=== PATIENT | male | born 1955 | race Caucasian/White ===

== ENCOUNTER 2017-05-31 21:25 | Emergency (ER) | payer OTHER ==
[~2017-05-31] VITALS: Ht 185.4 cm; Wt 145.1 kg
[~2017-05-31 21:25] MED LIST: COLACE100 MG PO; LISINOPRIL40 MG PO; LOSARTAN POTASS25 MG PO; TYLENOL WITH C1 EACH PO; VENLAFAXINE HCL75 MG PO; VERAPAMIL ER120 M1 PO; VERAPAMIL ER120 MG PO
[2017-05-31 22:02] LABS: BASOPHILS # (AUTO) 0.1 (0.0-0.1); BASOPHILS % 0.5 % (0.0-1.0); EOSINOPHILS # (AUTO) 0.5 (0.0-0.4); HEMATOCRIT 38.6 % (38.2-49.6); HEMOGLOBIN 12.3 g/dL (14.0-18.0); LYMPHOCYTES # (AUTO) 3.3 (1.0-3.2); LYMPHOCYTES % 28.6 % (18.0-39.1); MEAN CORPUSCULAR HEMOGLOBIN 24.8 pg (28-32); MEAN CORPUSCULAR HGB CONC 31.9 g/dL (31-35); MONOCYTES # (AUTO) 0.8 (0.2-0.8); MONOCYTES % 7.3 % (4.4-11.3); NEUTROPHILS # (AUTO) 6.7 (2.1-6.9); NEUTROPHILS % 59.1 % (38.7-80.0); PLATELET COUNT 231 x10e3/uL (140-360); RED BLOOD COUNT 4.95 x10e6/uL (4.3-5.7); RED CELL DISTRIBUTION WIDTH 14.3 % (11.7-14.4)
[2017-05-31 22:06] LABS: BILIRUBIN,URINE NEGATIVE (NEGATIVE); CLARITY,URINE CLEAR (CLEAR); COLOR,URINE YELLOW (YELLOW); KETONES,URINE NEGATIVE (NEGATIVE); LEUKOCYTE ESTERASE ,URINE NEGATIVE (NEGATIVE); NITRITE,URINE NEGATIVE (NEGATIVE); PROTEIN,URINE DIPSTICK 2+ (NEGATIVE); URINE UROBILINOGEN 0.2 mg/dL (0.2 - 1)
[2017-05-31 22:13] LABS: INR 1.07; PROTHROMBIN TIME 13.1 seconds (11.9-14.5)
[2017-05-31 22:14] LABS: PARTIAL THROMBOPLASTIN TIME 29.2 seconds (23.8-35.5)
[2017-05-31] MEDS ORDERED: METFORMIN HCL500 MG PO (22:14)
[2017-05-31] MEDS ORDERED: PROSCAR5 MG (22:14)
[2017-05-31] MEDS ORDERED: FLOMAX0.4 MG PO (22:14)
[2017-05-31] MEDS ORDERED: EFFEXOR XR 3737.5 MG (22:14)
[2017-05-31 22:24] LABS: ALBUMIN 3.8 g/dL (3.5-5.0); ALBUMIN/GLOBULIN RATIO 1.1 (0.8-2.0); ANION GAP 13.4 mmol/L (8-16); CALCIUM 9.7 mg/dL (8.4-10.2); CREATININE, SERUM 1.27 mg/dL (0.72-1.25); POTASSIUM 3.4 mmol/L (3.5-5.1)
[2017-05-31 22:25] LABS: BACTERIA,URINE RARE /HPF; EPITHELIAL CELLS,URINE RARE /LPF; RBC,URINE 0-5 /HPF (0-5); WBC,URINE (MAN) 0-5 /HPF (0-5)
[2017-05-31 22:30] LABS: CREATINE KINASE MB 1.5 ng/mL (0-5.0)
--- NOTE | 2017-05-31 23:14 | Diagnostic Imaging Report ---
EXAMINATION: Head CT HISTORY: Headache, hypertension COMPARISON: Head CT 08/01/2016 TECHNIQUE: Multidetector axial images were obtained without contrast from the foramen magnum to the vertex . The images were reconstructed using brain and bone algorithms. Thin section brain images were reformatted into coronal and sagittal planes. Intravenous contrast: None. Motion/streaking artifact limits the evaluation of the skull base and posterior cranial fossa. FINDINGS: Parenchyma: 1. No abnormal densities. 2. No mass or hemorrhage. No CT evidence of acute territorial vascular insult. Extra-axial spaces:No abnormal density. No extra-axial fluid collections Brain volume: Normal for age. Ventricles: No hydrocephalus or displacement. Arteries: No density suggestive of thrombus. Dural sinuses: No abnormal density. Extra-axial spaces: No abnormal density. Foramen magnum: No mass, Chiari malformation, or basilar invagination. Sella: No obvious mass. Paranasal/mastoid sinuses: Retention cyst in the right maxillary sinus. Skull/Scalp: No lytic or blastic lesions. No fractures. IMPRESSION: No intracranial abnormalities, particularly no hemorrhage. Unchanged from head CT on 08/01/2016 Signed by: Dr. Nely Casas M.D. on 05/31/2017 11:10 PM
--- NOTE | 2017-06-01 00:15 | Diagnostic Imaging Report ---
CHEST 2 VIEWS, Technique: CHEST 2 VIEWS Comparison: 7.18.17 Clinical history: Hypertension, headache DISCUSSION: Low lung volumes accentuate the cardiomediastinal silhouette and result in bibasilar vascular crowding/atelectasis. IMPRESSION: Low lung volumes without acute abnormality Signed by: Dr Nereyda Ba MD on 06/01/2017 12:11 AM
== END 2017-06-01 01:01 | disposition home or self-care (01) ==
LOC: ER 21:25
DX: R51 Headache (principal); I10 Essential (primary) hypertension; E11.9 Type 2 diabetes mellitus without complications; Z85.53 Personal history of malignant neoplasm of renal pelvis
CPT/HCPCS: 36415; 70450; 71046; 80053; 81001; 82550; 82553; 83735; 84484; 85025; 85610; 85730; 93005; 99284

== ENCOUNTER → 2018-11-08 | Day surgery (SDC) | payer OTHER ==
[~2018-11-08] MED LIST changes: +EFFEXOR XR 3737.5 MG; +FENTANYL CITRATE/PF 100MCG/2 ML INJ ONE; +FINASTERIDE5 MG PO; +FLOMAX0.4 MG PO; +GLUCAGON FOR INJ 1 MG VIAL ONE; +HYOSCYAMINE 0.125 MG TAB ONE; +LABETALOL HCL 20 ML ONE; +LOSARTAN POTAS100 MG PO; +METFORMIN HCL500 MG PO; +METOPROLOL SUCC25 MG PO; +MIDAZOLAM HCL 2 MG/2 ML VIAL ONE; +PROPOFOL IV EMULSION 10 MG/ML 20 ML VIAL ONE; +PROPOFOL IV EMULSION 10 MG/ML 50 ML VIAL ONE; +PROSCAR5 MG
--- OUTSIDE RECORDS SUMMARY | 2018-11-08 09:30 | XMS REPORT ---
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 Allergies, Adverse Reactions, Alerts This patient has no known allergies or adverse reactions. Medications This patient has no known medications. Results Test Description Test Time Test Comments Text Results Atomic Results Result Comments CT BRAIN WO [place] [address] Patient Name: DANO GOTTI MR #: [id number] : 1955 Age/Sex: 61/M Req #: [id number] Adm Physician: Ordered by: RIGO HARRISON MD Report #: [id number] Location: ER Room/Bed: Procedure: [id number] CT/CT BRAIN WO Exam Date: 05/31/17 Exam Time: 2200 REPORT STATUS: Signed EXAMINATION: Head CT HISTORY: Headache, hypertension COMPARISON: Head CT 08/01/2016 TECHNIQUE: Multidetector axial images were obtained without contrast from the foramen magnum to the vertex . The images were reconstructed using brain and bone algorithms. Thin section brain images were reformatted into coronal and sagittal planes. Intravenous contrast: None. Motion/streaking artifact limits the evaluation of the skull base and posterior cranial fossa. FINDINGS: Parenchyma: 1. No abnormal densities. 2. No mass or hemorrhage. No CT evidence of acute territorial vascular insult. Extra-axial spaces:No abnormal density. No extra-axial fluid collections Brain volume: Normal for age. Ventricles: No hydrocephalus or displacement. Arteries: No density suggestive of thrombus. Dural sinuses: No abnormal density. Extra-axial spaces: No abnormal density. Foramen magnum: No mass, Chiari malformation, or basilar invagination. Sella: No obvious mass. Paranasal/mastoid sinuses: Retention cyst in the right maxillary sinus. Skull/Scalp: No lytic or blastic lesions. No fractures. IMPRESSION: No intracranial abnormalities, particularly no hemorrhage. Unchanged from head CT on 08/01/2016 Signed by: Dr. Demetri Casas M.D. on 05/31/2017 11:10 PM Dictated By: DEMETRI CASAS MD 09 Transcribed By: RASHMI on 05/31/172309 COPY TO: RIGO HARRISON MD CHEST 2 VIEWS [place] [address] Patient Name: DANO GOTTI MR #: [id number] : 1955 Age/Sex: 61/M Req #: [id number] Adm Physician: Ordered by: RIGO HARRISON MD Report #: [id number] Location: ER Room/Bed: Procedure: [id number] DX/CHEST 2 VIEWS Exam Date: 05/31/17 Exam Time: 2209 REPORT STATUS: Signed CHEST 2 VIEWS, Technique: CHEST 2 VIEWS Comparison: 09.16.16 Clinical history: Hypertension, headache DISCUSSION: Low lung volumes accentuate the cardiomediastinal silhouette and result in bibasilar vascular crowding/atelectasis. IMPRESSION: Low lung volumes without acute abnormality Signed by: Dr Mike Ba MD on 06/01/2017 12:11 AM Dictated By: MIKE BA MD Transcribed By: RASHMI on 06/01/1710 COPY TO: RIGO HARRISON MD
[2018-11-08 14:25] VITALS: BP 123/80
--- NOTE | 2018-11-08 19:30 | Operative Report ---
DATE OF PROCEDURE: 11/08/2018 SURGEON: Arnulfo Valera MD PROCEDURE: Colonoscopy with polypectomy. INDICATIONS FOR COLONOSCOPY: Surveillance colonoscopy, personal history of colon polyps. MEDICATIONS: The patient was done under MAC, please see anesthesiologist's note. PROCEDURE IN DETAIL: With the patient in left lateral decubitus position, a flexible fiberoptic Olympus colonoscope was inserted into the rectum with ease and advanced all the way to the proximal ascending colon. It could not be advanced into the cecum due to excessive looping in the left colon. The cecum was only partially visualized and whatever was visualized appeared to be within normal limits. The scope was then withdrawn slowly. Mucosa overlying the ascending colon appeared to be within normal limits. One polyp was snared and two polyps were hot biopsied from the transverse colon. Three polyps were hot biopsied and one polyp was snared from the descending colon. Two polyps were hot biopsied from the sigmoid colon. Three polyps were hot biopsied from the rectum. The scope was then retroflexed into the distal rectum and small internal hemorrhoids were noted, none of which was actively bleeding. The scope was then straightened out, it was subsequently withdrawn, and the patient tolerated the procedure well. IMPRESSION: 1. Colonoscopy to proximal ascending colon. Could not advance scope any further due to excessive looping in the left colon. Cecum is partially visualized and whatever was visualized appeared to be within normal limits. 2. Transverse colon polyps x3, two hot biopsied and one snared. 3. Descending colon polyps x4, one snared and three hot biopsied. 4. Sigmoid colon polyps x2, hot biopsied. 5. Rectal polyps x3, hot biopsied. 6. Internal hemorrhoids, none actively bleeding. PLAN: Follow up histology. The patient will need an air-contrast barium enema to visualize cecum. A total of 12 polyps were removed. The patient might benefit from a followup colonoscopy in 1 to 2 years. Arnulfo Valera MD [facility] [place] /[id number] cc: El Mcclelland MD
== END | disposition home or self-care (01) ==
LOC: OR 09:28
PROVIDERS: ATTEND Internal Medicine Gastroenterology
DX: Z12.11 Encounter for screening for malignant neoplasm of colon (principal); D12.4 Benign neoplasm of descending colon; K63.5 Polyp of colon; K62.1 Rectal polyp; K64.8 Other hemorrhoids; Z86.010 Personal history of colon polyps; Z68.45 Body mass index [BMI] 70 or greater, adult; I10 Essential (primary) hypertension; E11.9 Type 2 diabetes mellitus without complications; G47.33 Obstructive sleep apnea (adult) (pediatric); Z79.84 Long term (current) use of oral hypoglycemic drugs; Z01.810 Encounter for preprocedural cardiovascular examination
CPT/HCPCS: 36415; 45384; 45385; 82948; 93005; J1610; J2250; J2704 ×2; J3010; J3490; 45378